=== PATIENT | male | born 1985 | race Caucasian/White ===

== ENCOUNTER 2020-07-14 17:33 | Emergency (ER) | payer MEDICARE, MEDICAID ==
[2020-07-14] MEDS ORDERED: Ketorolac 60 MG/2 ML SDV IM ONE (18:31)
[2020-07-14] MEDS ORDERED: hydrOXYzine HCl 25 MG Tab PO ONE (18:32)
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
== END 2020-07-14 19:01 | disposition home or self-care (01) ==
LOC: JP.ED 17:33
DX: G89.29 Other chronic pain (principal); M54.2 Cervicalgia; Z72.0 Tobacco use
CPT/HCPCS: 96372; 99283; A9270; J1885

== ENCOUNTER 2020-08-01 22:29 | Emergency (ER) | payer MEDICARE, MEDICAID ==
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
[2020-08-01] MEDS: Ketorolac 60 MG/2 ML SDV IM ONE (23:35)
[2020-08-01] MEDS: Cyclobenzaprine 10 MG Tab PO ONE (23:35)
== END 2020-08-02 00:31 | disposition home or self-care (01) ==
LOC: JP.ED 22:29
DX: G89.29 Other chronic pain (principal); M54.2 Cervicalgia; Z72.0 Tobacco use
CPT/HCPCS: 96372; 99283; A9270; J1885

== ENCOUNTER 2021-03-29 11:50 | Emergency (ER) | payer MEDICARE, MEDICAID ==
[2021-03-29] MEDS ORDERED: Sodium Chloride 0.9% 10 ML Syringe FLUSH PRN ×2 (12:33→12:55)
[2021-03-29] MEDS ORDERED: Sodium Chloride 0.9% 1,000 ML IV STA (12:33)
[2021-03-29] MEDS ORDERED: Ondansetron 4 MG/2 ML SDV IVPUSH ONE (12:35)
[2021-03-29] MEDS ORDERED: fentaNYL 100 MCG/2 ML SDV IM ONE (12:35)
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
[2021-03-29] MEDS ORDERED: Iopamidol 612 MG/ML 150 ML Bottle IV SCH (13:00)
[2021-03-29 13:43] LABS: CORONAVIRUS COVID-19 NAA NEGATIVE (NEGATIVE)
--- NOTE | 2021-03-29 14:11 | CT ---
Abdomen Pelvis w Cont CLINICAL HISTORY: Epigastric pain COMPARISON: None. TECHNIQUE: Transverse scans were obtained from the base of the lungs to the pubic symphysis following oral contrast and IV infusion of contrast.Auto dosage reduction and iterative reconstructiontechniques employed. FINDINGS: There is moderate diffuse mucosal thickening of the colon from cecum to rectum.. In the ascending colon there is a region of pericolic inflammatory change. There is a 1.5 x 2.1 x 1.8 cm low-attenuation focus which appears to be extraluminal. It contains a small amount of air. No free intraperitoneal air is seen. The lung bases are clear. The liver shows no mass or biliary dilatation. The gallbladder has a normal appearance. The spleen has a normal size and shape. The pancreas shows no mass or inflammatory change. The adrenal glands appear normal bilaterally . The kidneys show no mass, stones or hydronephrosis. The ureters have normal course and caliber. The bladder has a normal appearance. The aorta has a normal contour. There is no suspicious retroperitoneal adenopathy. IMPRESSION: Moderate durand colitis There is a focus of inflammatory change in the pericolic fat with possible small pericolic abscess in the ascending colon Small ringlike focus of enhancement near the tip of the cecum posteriorly. The appendix is not definitively identified. This may be some volume averaging with the a wall vessel. This may be some focal inflammatory change within a diverticula.
[2021-03-29] MEDS ORDERED: LORazepam 2 MG/ML SDV IVPUSH ONE (14:50)
== END 2021-03-29 16:04 | disposition home or self-care (01) ==
LOC: JP.ED 11:50
DX: K52.9 Noninfective gastroenteritis and colitis, unspecified (principal); F17.210 Nicotine dependence, cigarettes, uncomplicated; Z20.822 Contact with and (suspected) exposure to COVID-19; Z79.899 Other long term (current) drug therapy
CPT/HCPCS: 0241U; 36415; 74177; 80053; 80305; 81001; 83605; 83690; 84484; 85025; 85651; 86140; 87046; 87086; 87493; 87899; 89055; 96372; 96374; 96375; 99284; J2060; J2405; J3010; J7030; Q9967

== ENCOUNTER 2021-05-07 18:42 | Emergency (ER) | payer MEDICARE, MEDICAID ==
[2021-05-07 20:17] LABS: CORONAVIRUS COVID-19 NAA POSITIVE (NEGATIVE)
== END 2021-05-07 20:52 | disposition home or self-care (01) ==
LOC: JP.ED 18:42
DX: U07.1 COVID-19 (principal)
CPT/HCPCS: 0241U; 99283

== ENCOUNTER 2022-02-03 12:15 | Emergency (ER) | payer MEDICARE, MEDICAID ==
[2022-02-03] MEDS ORDERED: Ondansetron 4 MG/2 ML SDV IVPUSH ONE (13:52)
[2022-02-03] MEDS ORDERED: Nicotine 21 MG/24 Hr Patch TRDERM ONE (14:06)
[2022-02-03] MEDS: Sodium Chloride 0.9% 10 ML Syringe FLUSH PRN ×2 (14:23→14:57)
[2022-02-03 14:24] LABS: ESTIMATED GFR 119 mL/min (>60)
[2022-02-03] MEDS ORDERED: Sodium Chloride 0.9% 10 ML SDV FLUSH ONE (14:34)
[2022-02-03] MEDS ORDERED: Iopamidol 612 MG/ML 100 ML Bottle IV PRN (14:34)
[2022-02-03] MEDS ORDERED: Sodium Chloride 0.9% 50 ML IV SCH (14:45)
== END 2022-02-03 15:15 | disposition left against medical advice (07) ==
LOC: JP.ED 12:15
DX: R10.32 Left lower quadrant pain (principal); R10.11 Right upper quadrant pain; R10.31 Right lower quadrant pain; R11.0 Nausea; Z72.0 Tobacco use; Z79.899 Other long term (current) drug therapy
CPT/HCPCS: 36415; 74177; 80053; 85025; 86140; 96374; 99284; A9270; J2405; J3490; Q9967

== ENCOUNTER 2022-06-30 16:02 | Observation (INO) | payer MEDICARE, MEDICAID ==
[2022-06-30] MEDS ORDERED: LORazepam 2 MG/ML SDV IVPUSH PRN (16:52)
[2022-06-30] MEDS ORDERED: Magnesium Hydroxide 400 MG/5 ML Susp 30 ML Cup PO PRN (16:52)
[2022-06-30] MEDS ORDERED: Ondansetron 4 MG/2 ML SDV IV PRN (16:52)
[2022-06-30] MEDS ORDERED: Sodium Chloride 0.9% 10 ML Syringe FLUSH PRN (16:52)
[2022-06-30] MEDS ORDERED: Ondansetron 4 MG Tab.DIS PO PRN (16:52)
[2022-06-30] MEDS ORDERED: Acetaminophen 500 MG Tab PO PRN (16:59)
[2022-06-30] MEDS ORDERED: traZODone 50 MG Tab PO PRN (16:59)
[2022-06-30] MEDS ORDERED: QUETIAPINE FUMARATE 50 MG PO SCH (17:00)
[2022-06-30] MEDS ORDERED: Nicotine 21 MG/24 Hr Patch TOP SCH (17:00)
[2022-06-30] MEDS ORDERED: Nicotine 14 MG/24 Hr Patch TRDERM SCH (17:00)
[2022-06-30] MEDS ORDERED: Sodium Chloride 0.9% 50 ML IV SCH (17:15)
[2022-06-30] MEDS ORDERED: Iopamidol 612 MG/ML 100 ML Bottle IV SCH (17:15)
[2022-06-30] MEDS: methylPREDNISolone Sodium Succinate 40 MG/1 ML SDV IVPUSH SCH (18:03)
[2022-06-30] MEDS: HYDROmorphone 1 MG/ML Syringe IVPUSH PRN ×3 (18:03→22:01)
[2022-06-30] MEDS: Sodium Chloride 0.9% 1,000 ML IV SCH (18:03)
[2022-06-30] MEDS: Nicotine 21 MG/24 Hr Patch TOP SCH (18:07)
[2022-06-30] MEDS: cefTRIAXone 1 GM in Sodium Chloride 0.9% 50 ML IV SCH (18:20)
[2022-06-30] MEDS: metroNIDAZOLE/Normal Saline 500 MG in Premix Bag 1 BAG IV SCH (19:32)
[2022-06-30] MEDS: Nicotine Polacrilex 2 MG Gum CHEW PRN ×4 (19:32→23:29)
[2022-06-30] MEDS: QUEtiapine 25 MG Tab PO SCH (20:02)
[2022-06-30] MEDS ORDERED: tiZANidine 2 MG Tab PO PRN (20:46)
[2022-06-30] MEDS ORDERED: QUEtiapine 25 MG Tab PO ONE (20:47)
[2022-06-30] MEDS ORDERED: CHLORZOXAZONE 500 MG PO SCH (21:00)
[2022-06-30] MEDS ORDERED: MESALAMINE 800 MG PO SCH (21:00)
[2022-06-30] MEDS ORDERED: Prazosin 1 MG Cap PO SCH (21:00)
[2022-06-30] MEDS ORDERED: MESALAMINE RECTAL SCH (21:00)
[2022-06-30] MEDS: Promethazine 25 MG Tab PO PRN (22:03)
[2022-07-01] MEDS: HYDROmorphone 1 MG/ML Syringe IVPUSH PRN ×6 (00:07→10:56)
[2022-07-01] MEDS: Calcium Carbonate 500 MG Tab.Chew PO PRN ×3 (00:07→22:00)
[2022-07-01] MEDS: methylPREDNISolone Sodium Succinate 40 MG/1 ML SDV IVPUSH SCH ×3 (01:38→18:37)
[2022-07-01] MEDS: metroNIDAZOLE/Normal Saline 500 MG in Premix Bag 1 BAG IV SCH ×3 (01:38→17:19)
[2022-07-01] MEDS: Nicotine Polacrilex 2 MG Gum CHEW PRN ×8 (02:04→19:26)
[2022-07-01 05:40] LABS: ESTIMATED GFR 124 mL/min (>60)
[2022-07-01] MEDS: Promethazine 25 MG Tab PO PRN ×2 (06:09→17:28)
[2022-07-01] MEDS: Sodium Chloride 0.9% 1,000 ML IV SCH ×2 (06:09→19:23)
[2022-07-01] MEDS: QUEtiapine 25 MG Tab PO SCH (08:48)
[2022-07-01] MEDS: Nicotine 21 MG/24 Hr Patch TOP SCH (08:48)
[2022-07-01] MEDS ORDERED: PARoxetine 20 MG Tab PO SCH (09:00)
[2022-07-01] MEDS ORDERED: CHLORZOXAZONE 500 MG PO PRN (10:59)
[2022-07-01] MEDS ORDERED: traZODone 50 MG Tab (PTOM) PO PRN (11:11)
[2022-07-01] MEDS: PAROXETINE 30 MG PO SCH (11:21)
[2022-07-01] MEDS: MESALAMINE 800 MG PO SCH ×2 (11:34→17:16)
[2022-07-01] MEDS: oxyCODONE 5 MG Tab PO PRN ×3 (13:01→21:16)
[2022-07-01] MEDS ORDERED: MESALAMINE 800 MG PO SCH (14:00)
[2022-07-01] MEDS ORDERED: MESALAMINE 4 GM RECTAL SCH ×2 (16:00→21:00)
[2022-07-01] MEDS: cefTRIAXone 1 GM in Sodium Chloride 0.9% 50 ML IV SCH (18:37)
[2022-07-01] MEDS: Acetaminophen 325 MG Tab PO PRN (19:32)
[2022-07-01] MEDS ORDERED: PRAZOSIN 1 MG PO SCH (21:00)
[2022-07-01] MEDS ORDERED: QUETIAPINE 50 MG PO SCH (21:00)
[2022-07-02] MEDS: methylPREDNISolone Sodium Succinate 40 MG/1 ML SDV IVPUSH SCH ×2 (02:14→09:05)
[2022-07-02] MEDS: metroNIDAZOLE/Normal Saline 500 MG in Premix Bag 1 BAG IV SCH ×2 (02:14→09:19)
[2022-07-02] MEDS: oxyCODONE 5 MG Tab PO PRN ×2 (02:15→06:18)
[2022-07-02] MEDS: Acetaminophen 325 MG Tab PO PRN ×2 (05:20→09:05)
[2022-07-02 05:28] LABS: ESTIMATED GFR 124 mL/min (>60)
[2022-07-02] MEDS: Sodium Chloride 0.9% 1,000 ML IV SCH (06:19)
[2022-07-02] MEDS: Promethazine 25 MG Tab PO PRN (06:43)
[2022-07-02] MEDS: Nicotine Polacrilex 2 MG Gum CHEW PRN (07:11)
[2022-07-02] MEDS: MESALAMINE 800 MG PO SCH (08:19)
[2022-07-02] MEDS: PAROXETINE 30 MG PO SCH (08:19)
[2022-07-02] MEDS: Nicotine 21 MG/24 Hr Patch TOP SCH (08:20)
[2022-07-02] MEDS ORDERED: QUETIAPINE 50 MG PO SCH (09:00)
== END 2022-07-02 10:40 | disposition home or self-care (01) ==
LOC: JP.MS 16:02
PROVIDERS: ADMIT Hospitalist; ATTEND Student in an Organized Health Care Education/Training Program
DX: R10.32 Left lower quadrant pain (principal); F32.A Depression, unspecified; Z79.899 Other long term (current) drug therapy; H91.90 Unspecified hearing loss, unspecified ear; F41.9 Anxiety disorder, unspecified; F17.210 Nicotine dependence, cigarettes, uncomplicated
CPT/HCPCS: 36415; 74177; 80053; 83690; 85025; 85027; 86140; 96361; 96365; 96366; 96367; 96375; 96376; 99222; 99232; 99238; A9270; G0378; J0696; J1170; J2920; J3490; J7030; Q0162; Q9967

== ENCOUNTER 2022-09-08 18:33 | Emergency (ER) | payer MEDICARE, MEDICAID | END 2022-09-08 21:51 | disposition home or self-care (01) | LOC: JP.ED 18:33 | DX: J06.9 Acute upper respiratory infection, unspecified (principal); Z88.8 Allergy status to other drugs, medicaments and biological substances; Z88.5 Allergy status to narcotic agent | CPT/HCPCS: 99282; 99284; U0002 ==